=== PATIENT | male | born 2000 | race Two or more races ===

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

== ENCOUNTER → 2023-03-18 | Emergency (ER) | payer OTHER ==
[~2023-03-18] VITALS: Ht 177.8 cm; Wt 90.7 kg
== END | disposition left against medical advice (07) ==
LOC: ER 20:48
DX: J10.1 Influenza due to other identified influenza virus with other respiratory manifestations (principal); Z20.822 Contact with and (suspected) exposure to COVID-19